=== PATIENT | female | born 2000 | race Caucasian/White ===

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

== ENCOUNTER 2021-07-17 14:14 | Inpatient (IN) | payer MEDICAID, OTHER ==
[~2021-07-17] VITALS: Ht 162.6 cm; Wt 63.6 kg
[2021-07-17] VITALS (8 sets, daily range): BP systolic 99–133; BP diastolic 51–76
[2021-07-17] MEDS ORDERED: LACTATED RINGER'S 1000 ML IV STA (14:53)
[2021-07-17] MEDS ORDERED: OXYTOCIN DRIP 30 UNITS in IV 1 EA IV PRN (14:55)
[2021-07-17] MEDS ORDERED: METHYLERGONOVINE MALEATE 0.2 MG/ML VIAL (J2210) IM PRN (14:55)
[2021-07-17] MEDS ORDERED: LR 1,000 ML IV SCH (14:55)
[2021-07-17] MEDS ORDERED: LIDOCAINE 1% MDV 20ML VIAL INFIL PRN (14:55)
--- NOTE | 2021-07-17 15:14 | HPEPDOC ---
Obstetrical History & Physical General Date of Admission Jul 17, 2021 at 14:46 History of Present Illness Chief Complaint: Contractions, term Information Provided By: Patient Age: 20 : 2 Term: 1 Pre-term: 0 Abortions: 0 Livin Care Care: Good Care Dating Final EDC: Jul 23, 2021 EGA at Admission: 39 (+1) Past Medical History Past Obstetrical History : Past Obstetrical History: Primgravida (07/2020) Type of Delivery: Spontaneous Vaginal Del. 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 BREAST: . ABDOMEN: Gravid and non-tender to touch. FETUS: Is vertex (VTX) by sterile vaginal examination (SVE), fetus is vertex (VTX) by Adebayo. EFW &.5# HEART RATE: Regular rate and rhythm. LUNGS: Clear to auscultation (CTA). EXTREMITIES: No edema. No clonus. Deep tendon reflexes (DTRs) + 2. Vital Signs/I&O Vital Signs Date Time Temp Pulse Resp B/P (MAP) Pulse Ox O2 Delivery O2 Flow Rate FiO2 07/17/21 14:35 98.2 100 18 99/51 (67) Pertinent Laboratoy Data Blood Type: A+ RBC Antibody Screen: Negative HIV: Negative Hepatitis B: Negative Rapid Plasma Reagin: Nonreactive Rubella: Immune Chlamydia/Gonorrhea: Negative Group B Streptococcus: Negative Anatomy Ultrasound Ultrasound Date: March 02, 2021 Placenta Location: Posterior Normal Anatomy: Yes Placenta Previa: No Estimated Weight (grams): 333 (77%) Other Ultrasounds 01/12/2021 12w4d JEWEL 07/23/2021 Steroid Therapy Steroid Therapy: No Vaginal Examination Dilation: 5 cm Effacement: 100% Station: -1 Cervical Consistency: Soft Cervical Position: Middle Presentation: Cephalic presentation Assessment Heart Rate (FHR): 145 Variability: Moderate Accelerations: Positive Decelerations: Early Tocometer Contractions: Yes Frequency: irregular, every 2-5 min. Duration: greater than 60 seconds Strength: palpated as moderate Assessment/Plan Assessment Jenifer is a 20-year-old (G)2 para (P)1-0-0-1 at 39+1 weeks by 12-week ultrasound. Presents to Labor and Delivery (L&D) with complaints of contractions since this morning. Reports light bloody show. Denies LOF, bleeding or UC. Fetus is active. Plan Admit and orient. 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 Diet: clear liquids. Group B Streptococcus (GBS) negative. Labs and intravenous (IV) per unit protocol. Counseled on Pitocin and induction of labor (IOL). Lactated Ringers (LR): Bolus 500 mL, then at 125 mL/hr. Labor ad yoli Anticipate normal spontaneous delivery () C-S as appropriate. Natalia Castle CNM Jul 17, 2021 15:14
[2021-07-17 15:52] LABS: HEMATOCRIT 28.7 % (36.0-47.0); HEMOGLOBIN 9.3 g/dl (12.0-15.5); MEAN CORPUSCULAR HEMOGLOBIN 30.8 pg (27.0-33.0); MEAN CORPUSCULAR HGB CONC 32.4 g/dl (32.0-36.5); PLATELET COUNT, AUTOMATED 169 10^3/uL (150-450); RED BLOOD COUNT 3.02 10^6/uL (4.00-5.40); WHITE BLOOD COUNT 13.3 10^3/uL (4.0-10.0)
[2021-07-17] MEDS ORDERED: ONDANSETRON 4MG/2ML VIAL IV PRN (16:45)
[2021-07-17] MEDS ORDERED: ACETAMINOPHEN 500 MG TAB PO PRN (17:25)
[2021-07-17] MEDS ORDERED: DOCUSATE SODIUM 100MG CAPSULE PO PRN (17:25)
[2021-07-17] MEDS ORDERED: OXYTOCIN DRIP 30 UNITS in IV 1 EA IV SCH (17:25)
[2021-07-17] MEDS ORDERED: MEASLES,MUMPS,RUBELLA VACCINE INJ (MMR-II) (90707) SC SCH (17:25)
[2021-07-17] MEDS ORDERED: IBUPROFEN 600MG TAB PO PRN (17:25)
[2021-07-17] MEDS ORDERED: DIBUCAINE 1% OINTMENT 30GM TOP PRN (17:25)
[2021-07-17] MEDS ORDERED: IBUPROFEN 800 MG TAB PO PRN (17:25)
[2021-07-17] MEDS ORDERED: METHYLERGONOVINE MALEATE 0.2 MG TAB PO PRN (17:25)
[2021-07-17] MEDS ORDERED: ACETAMINOPHEN TAB 650MG DOSE (2X325MG) PO PRN (17:25)
[2021-07-17] MEDS ORDERED: ANUSOL HC CREAM 30GM TOP PRN (17:25)
[2021-07-17] MEDS ORDERED: RHOGAM 300 MCG (1500 IU) INJ (J2790) IM SCH (17:25)
[2021-07-17] MEDS ORDERED: MOM 30ML SUSPENSION UDC PO PRN (17:25)
--- NOTE | 2021-07-17 17:41 | DNPDOC ---
[facility] Delivery Note Delivery Note DATE OF DELIVERY: 07/17/2021 PREDELIVERY DIAGNOSIS: 39+1/7 weeks' gestation and labor. POST DELIVERY DIAGNOSIS: Delivered. PROCEDURE: Spontaneous vaginal delivery. PROVIDER: Natalia Castle CNM ANESTHESIA: None ESTIMATED BLOOD LOSS: 400 mL. FINDINGS: 7 pound 11 ounce, 3490gm male , Score 9/9, no nuchal cord. DELIVERY SUMMARY: Patient is a 20-year-old 2 now para 2/0/0/2 who was admitted to labor and delivery for active labor. She progressed under her own robison. AROM large amount clear fluid 165. Fully dilated 170. Viable male deli otoniel GIANCARLO, restituted to LOP @ 1709. Shoulders delivered with ease. Spontaneous respirations, transitioned on maternal abdomen. Cord doubly clamped and cut by family member once pulsations ceased under my direction. Apgars 9/9. Placenta jones, intact, 3v cord @ 1713. Fundus firmed with massage and IV premixed pitocin bolus. However quickly became boggy. Misoprostol 1000mcg ND placed with excellent control of bleeding. EBL 400ml. Cervix, vagina and perineum intact. Sponge, sharp and instrument count correct at close of procedure. Mom is naming her son Sam. Natalia Castle CNM Jul 17, 2021 17:41
[2021-07-17] MEDS ORDERED: HOME MED LIST COMPLETE! XX SCH (18:45)
[2021-07-18 06:16] VITALS: BP 108/64
[2021-07-18 07:05] LABS: HEMATOCRIT 28.1 % (36.0-47.0); HEMOGLOBIN 9.4 g/dl (12.0-15.5); MEAN CORPUSCULAR HEMOGLOBIN 31.2 pg (27.0-33.0); MEAN CORPUSCULAR HGB CONC 33.5 g/dl (32.0-36.5); MEAN CORPUSCULAR VOLUME 93.4 fl (80.0-96.0); PLATELET COUNT, AUTOMATED 171 10^3/uL (150-450); RED BLOOD COUNT 3.01 10^6/uL (4.00-5.40); WHITE BLOOD COUNT 14.6 10^3/uL (4.0-10.0)
[2021-07-18] MEDS: PRENATAL VITAMINS CHEWABLE TABLET PO SCH (09:19)
--- NOTE | 2021-07-18 10:24 | IPNPDOC ---
Progress Note Date of Service: Jul 18, 2021 Day#: 1 Progress Note SUBJECT: Status post . She has been ambulating, voiding spontaneously without issue and tolerating regular diet. Lochia decreasing/minimal. Pain is well-controlled. Denies headache, visual changes, right upper quadrant pain, shortness breath or chest pain. OBJECTIVE: VITAL SIGNS: Within normal limits, afebrile. Alert and oriented times three. Abdomen: Fundus firm at U-2. Soft, NTTP. ASSESSMENT: Status post uncomplicated spontaneous vaginal delivery. Vitals within normal limits, afebrile, hemodynamically stable with no evidence of infection. PLAN: Discharge to home later today or tomorrow. Tylenol and Motrin for pain. Routine instructions/precautions reviewed. Routine PP visit in 6 weeks in clinic. VS, I&O, 24H, Fishbone Vital Signs/I&O Vital Signs Date Time Temp Pulse Resp B/P (MAP) Pulse Ox O2 Delivery O2 Flow Rate FiO2 07/18/21 06:16 97.8 61 16 108/64 (79) I&O- Last 24 Hours up to 6 AM 07/18/21 06:00 Intake Total 740 ml Output Total 550 ml Balance 190 ml Laboratory Data 24H LABS Laboratory Tests 2 07/17/21 15:19: Serology Scanned Report Hepatitis B Testing 07/17/21 15:22: Nucleated Red Blood Cells % (auto) 0.0, Syphilis Serology NONREACTIVE 07/17/21 16:07: Coronavirus (COVID-19)(PCR) NEGATIVE 07/18/21 06:36: Nucleated Red Blood Cells % (auto) 0.0 CBC/BMP Laboratory Tests 07/17/21 15:22 07/18/21 06:36 SIMRAN IVERSON DO Jul 18, 2021 10:24
[2021-07-18] MEDS: NICOTINE 14 MG/24 HR TRANSDERMAL TD SCH (17:15)
[2021-07-18 18:10] VITALS: BP 123/79
[2021-07-18 21:00] VITALS: BP 123/79
[2021-07-19 06:00] VITALS: BP 106/72
[2021-07-19] MEDS: PRENATAL VITAMINS CHEWABLE TABLET PO SCH (08:00)
[2021-07-19] MEDS: NICOTINE 14 MG/24 HR TRANSDERMAL TD SCH (08:00)
--- NOTE | 2021-07-19 10:35 | IPNPDOC ---
Progress Note Date of Service: Jul 19, 2021 Day#: 2 Progress Note SUBJECT: Status post . She has been ambulating, voiding spontaneously with out issue and tolerating regular diet. Lochia decreasing/minimal. Pain is well- controlled. Denies headache, visual changes, right upper quadrant pain, shortness breath or chest pain. OBJECTIVE: VITAL SIGNS: Within normal limits, afebrile. Alert and oriented times three. Abdomen: Fundus firm at U-2. Soft, NTTP. ASSESSMENT: Status post uncomplicated spontaneous vaginal delivery. Vitals within normal limits, afebrile, hemodynamically stable with no evidence of infection. PLAN: Discharge to home today. Tylenol and Motrin for pain. Routine instructions/precautions reviewed. Routine PP visit in 6 weeks in clinic. VS, I&O, 24H, Fishbone Vital Signs/I&O Vital Signs Date Time Temp Pulse Resp B/P (MAP) Pulse Ox O2 Delivery O2 Flow Rate FiO2 07/19/21 06:00 97.8 60 16 106/72 (83) 99 Room Air SIMRAN IVERSON DO Jul 19, 2021 10:35
== END 2021-07-19 12:15 | disposition home or self-care (01) | DRG 560 ==
LOC: M LDO 14:14 → M LDI 14:46 → M OBS 19:31
PROVIDERS: ADMIT Advanced Practice Midwife; ATTEND Advanced Practice Midwife
PROC: 10E0XZZ Delivery of Products of Conception, External Approach (ICD-10-PCS; principal; 2021-07-17)
PROC: 10907ZC Drainage of Amniotic Fluid, Therapeutic from Products of Conception, Via Natural or Artificial Opening (ICD-10-PCS; 2021-07-17)
DX: O80 Encounter for full-term uncomplicated delivery (principal); Z88.0 Allergy status to penicillin; Z87.891 Personal history of nicotine dependence; Z3A.39 39 weeks gestation of pregnancy; Z37.0 Single live birth

== ENCOUNTER 2024-12-15 10:57 | Emergency (ER) | payer OTHER ==
[~2024-12-15] VITALS: Ht 162.6 cm; Wt 50.5 kg
[2024-12-15 11:03] VITALS: TEMP 98.3
[2024-12-15 12:58] VITALS: BP 107/58; O2SAT 98
== END 2024-12-15 13:00 | disposition home or self-care (01) ==
LOC: M ED 10:57
DX: Z32.01 Encounter for pregnancy test, result positive (principal); F17.200 Nicotine dependence, unspecified, uncomplicated; Z88.0 Allergy status to penicillin

== ENCOUNTER → 2025-01-03 | Outpatient (CLI) | payer OTHER ==
[2025-01-03 14:21] LABS: HEMATOCRIT 40.7 % (36.0-47.0); HEMOGLOBIN 13.6 g/dl (12.0-15.5); MEAN CORPUSCULAR HEMOGLOBIN 31.5 pg (27.0-33.0); MEAN CORPUSCULAR HGB CONC 33.4 g/dl (32.0-36.5); MEAN CORPUSCULAR VOLUME 94.2 fl (80.0-96.0); PLATELET COUNT, AUTOMATED 206 10^3/uL (150-450); RED BLOOD COUNT 4.32 10^6/uL (4.00-5.40); WHITE BLOOD COUNT 8.1 10^3/uL (4.0-10.0)
[2025-01-03 14:48] LABS: URIC ACID 3.6 MG/DL (3.1-7.8)
[2025-01-03 14:49] LABS: TOTAL PROTEIN,RANDOM URINE 115.7 MG/DL (0.0-14.0)
[2025-01-03 14:50] LABS: LDH LACTATE DEHYDROGENASE 148 U/L (120-246)
[2025-01-03 14:51] LABS: ALT/SGPT 19 U/L (7.0-40); AST/SGOT 11 U/L (<34); BILIRUBIN,TOTAL 0.6 MG/DL (0.3-1.2); CREATININE FOR GFR 0.69 MG/DL (0.55-1.30); GLOMERULAR FILTRATION RATE > 60.0 (>60)
[2025-01-03 15:05] LABS: CREATININE,RANDOM URINE 358.8 MG/DL
[2025-01-03 15:23] LABS: Trichomonas vaginalis (AMP) NOT DETECTED (NEGATIVE)
[2025-01-03 15:26] LABS: HIV 1&2 SCREEN NEGATIVE (NEGATIVE)
[2025-01-03 15:34] LABS: HEPATITIS C VIRUS ABY INDEX 0.03 INDEX (<0.8)
[2025-01-03 15:48] LABS: GC DNA AMPLIFICATION NEGATIVE (NEGATIVE)
== END ==
LOC: M PLALAB 11:47
PROVIDERS: ATTEND Advanced Practice Midwife
DX: Z34.81 Encounter for supervision of other normal pregnancy, first trimester (principal)

== ENCOUNTER → 2025-02-07 | Outpatient (CLI) | payer OTHER | LOC: M PLALAB 15:18 | PROVIDERS: ATTEND Nurse Practitioner Family | DX: Z34.80 Encounter for supervision of other normal pregnancy, unspecified trimester (principal) ==

== ENCOUNTER → 2025-05-31 | Outpatient (CLI) | payer OTHER ==
[~2025-05-31] MED LIST: MACR100C43 PO; MULTTAB20 PO
[2025-05-31 15:52] LABS: PLATELET COUNT, AUTOMATED 160 10^3/uL (150-450)
[2025-05-31 15:53] LABS: GLUCOSE CHALLENGE TEST 1 HOUR 109 MG/DL (LESS THAN 140)
[2025-05-31 16:27] LABS: HIV 1&2 SCREEN NEGATIVE (NEGATIVE)
[2025-05-31 16:35] LABS: HEPATITIS C VIRUS ABY INDEX < 0.02 INDEX (<0.8)
[2025-05-31 16:50] LABS: Trichomonas vaginalis (AMP) NOT DETECTED (NEGATIVE)
[2025-05-31 17:14] LABS: GC DNA AMPLIFICATION NEGATIVE (NEGATIVE)
== END ==
LOC: M PLALAB 10:06
PROVIDERS: ATTEND Nurse Practitioner Family
DX: Z34.80 Encounter for supervision of other normal pregnancy, unspecified trimester (principal)

== ENCOUNTER → 2025-07-11 | Outpatient (CLI) | payer OTHER | LOC: M WHC 15:01 | PROVIDERS: ATTEND Advanced Practice Midwife | DX: O26.843 Uterine size-date discrepancy, third trimester (principal) ==

== ENCOUNTER → 2025-08-01 | Outpatient (CLI) | payer OTHER | LOC: M PLALAB 10:57 | PROVIDERS: ATTEND Advanced Practice Midwife | DX: O99.013 Anemia complicating pregnancy, third trimester (principal); D64.9 Anemia, unspecified; Z3A.36 36 weeks gestation of pregnancy ==

== ENCOUNTER 2025-08-13 08:11 | Outpatient (CLI) | payer OTHER ==
[~2025-08-13] VITALS: Ht 162.6 cm; Wt 61.8 kg
[~2025-08-13 08:11] MED LIST changes: +ACETAMINOPHEN 650 MG PO ONE; +ALBUTEROL SULFATE 2.5 MG/0.5 ML INH CONCENTRATE NEB SOLN INH PRN; +EPINEPHrine INJ 1 MG/ML 1ML AMP IM PRN; +IRON SUCROSE 300 MG in NS 250 ML IV ONE; +diphenhydrAMINE 50 MG/ML VIAL IV PRN
[2025-08-13 09:00] VITALS: BP 110/58; O2SAT 100
[2025-08-13] MEDS ORDERED: EPINEPHrine INJ 1 MG/ML 1ML AMP IM PRN (09:00)
[2025-08-13] MEDS ORDERED: ALBUTEROL SULFATE 2.5 MG/0.5 ML INH CONCENTRATE NEB SOLN INH PRN (09:00)
[2025-08-13] MEDS ORDERED: diphenhydrAMINE 50 MG/ML VIAL IV PRN (09:00)
[2025-08-13] MEDS: ACETAMINOPHEN 650 MG PO ONE (09:46)
[2025-08-13] MEDS: IRON SUCROSE 300 MG in NS 250 ML IV ONE (10:01)
[2025-08-13 11:56] VITALS: BP 103/57; O2SAT 99
== END 2025-08-13 11:57 ==
LOC: M INFU 08:11
PROVIDERS: ATTEND Nurse Practitioner Family
DX: O99.019 Anemia complicating pregnancy, unspecified trimester (principal); D50.9 Iron deficiency anemia, unspecified; Z88.0 Allergy status to penicillin; Z3A.00 Weeks of gestation of pregnancy not specified
CPT/HCPCS: 96365; 96366; J1756

== ENCOUNTER 2025-08-17 16:18 | Inpatient (IN) | payer OTHER ==
[~2025-08-17] VITALS: Ht 162.6 cm; Wt 61.9 kg
[~2025-08-17 16:18] MED LIST changes: -ACETAMINOPHEN 650 MG PO ONE; -ALBUTEROL SULFATE 2.5 MG/0.5 ML INH CONCENTRATE NEB SOLN INH PRN; -EPINEPHrine INJ 1 MG/ML 1ML AMP IM PRN; -IRON SUCROSE 300 MG in NS 250 ML IV ONE; -diphenhydrAMINE 50 MG/ML VIAL IV PRN
[2025-08-17] MEDS ORDERED: IRON1TAB2 PO (16:47)
[2025-08-17] MEDS ORDERED: ASPI81CH33 PO (16:47)
[2025-08-17] MEDS ORDERED: HOME MED LIST COMPLETE! XX SCH (16:50)
[2025-08-17] MEDS ORDERED: LR 1,000 ML IV SCH (17:00)
[2025-08-17] MEDS ORDERED: OXYTOCIN DRIP 30 UNITS in IV 1 EA IV SCH (17:00)
[2025-08-17] MEDS ORDERED: LIDOCAINE 1% MDV 20 ML VIAL INFIL PRN (17:00)
[2025-08-17] MEDS ORDERED: OXYTOCIN 30UNITS IN 0.9% NaCl 500ML IV BAG IV ONE (17:04)
[2025-08-17 17:20] VITALS: BP 135/83
[2025-08-17 17:32] LABS: PLATELET COUNT, AUTOMATED 162 10^3/uL (150-450)
[2025-08-17 17:37] VITALS: BP 102/68
[2025-08-17] MEDS: OXYTOCIN DRIP 30 UNITS in IV 1 EA IV PRN (17:37)
[2025-08-17 17:49] VITALS: BP 121/74
[2025-08-17 18:04] VITALS: BP 118/78
[2025-08-17 18:19] VITALS: BP 116/77
[2025-08-17 18:28] LABS: HIV 1&2 SCREEN NEGATIVE (NEGATIVE)
[2025-08-17] MEDS ORDERED: ACETAMINOPHEN 325 MG TAB PO PRN (18:35)
[2025-08-17] MEDS ORDERED: METHYLERGONOVINE MALEATE 0.2 MG TAB PO PRN (18:35)
[2025-08-17] MEDS ORDERED: RHOGAM 300MCG (1500IU) INJ IM SCH (18:35)
[2025-08-17] MEDS ORDERED: ACETAMINOPHEN 500 MG TAB PO PRN (18:35)
[2025-08-17] MEDS ORDERED: IBUPROFEN 600 MG TAB PO PRN (18:35)
[2025-08-17] MEDS: OXYTOCIN DRIP 30 UNITS in IV 1 EA IV SCH (18:35)
[2025-08-17] MEDS ORDERED: ONDANSETRON 4MG/2ML VIAL IV PRN (18:35)
[2025-08-17 18:36] LABS: HEPATITIS C VIRUS ABY INDEX < 0.02 INDEX (<0.8)
[2025-08-17 19:45] VITALS: BP 112/61; O2SAT 98
[2025-08-17] MEDS: DIBUCAINE 1% OINTMENT 30 GM TOP PRN (20:47)
[2025-08-18] MEDS: DOCUSATE SODIUM 100 MG CAPSULE PO PRN (04:20)
[2025-08-18] MEDS: IBUPROFEN 800 MG TAB PO PRN (04:20)
[2025-08-18 05:58] VITALS: BP 112/76; O2SAT 98
[2025-08-18 06:20] LABS: PLATELET COUNT, AUTOMATED 138 10^3/uL (150-450)
[2025-08-18] MEDS: PRENATAL VITAMINS CHEWABLE TABLET PO SCH (09:16)
[2025-08-18 17:56] VITALS: BP 109/56; O2SAT 96
[2025-08-18] MEDS: MEASLES,MUMPS,RUBELLA VACCINE INJ (MMR-II) SC.IMMUN ONE (23:58)
[2025-08-19 06:00] VITALS: BP 120/78; O2SAT 99
[2025-08-19] MEDS: FERROUS SULFATE 325 MG TAB PO SCH (08:02)
[2025-08-19] MEDS ORDERED: ACET-683 PO (09:26)
[2025-08-19] MEDS ORDERED: IBUP80TA PO (09:26)
== END 2025-08-19 11:19 | disposition home or self-care (01) | DRG 560 ==
LOC: M LDO 16:18 → M LDI 16:45 → M OBS 19:46
PROVIDERS: ADMIT Student in an Organized Health Care Education/Training Program; ATTEND Student in an Organized Health Care Education/Training Program
PROC: 10E0XZZ Delivery of Products of Conception, External Approach (ICD-10-PCS; principal; 2025-08-17)
DX: O69.82X0 Labor and delivery complicated by other cord entanglement, without compression, not applicable or unspecified (principal); Z37.0 Single live birth; Z3A.38 38 weeks gestation of pregnancy